=== PATIENT | female | born 1990 | race Caucasian/White ===

== ENCOUNTER 2019-08-06 13:21 | Emergency (ER) | payer MEDICAID ==
[~2019-08-06] VITALS: Ht 157.5 cm; Wt 97.9 kg
[2019-08-06] MEDS ORDERED: LIDOcaine 1% W/epiNEPHrine 1:200,000 10ml vial IJ ONE (13:50)
[2019-08-06] MEDS ORDERED: DOXY100C43 PO (14:28)
[2019-08-06] MEDS ORDERED: LORazepam 1 MG tablet PO ONE (14:30)
[2019-08-06] MEDS ORDERED: HYDROcodone/acetaminophen 5mg/325mg tablet PO ONE (14:30)
--- NOTE | 2019-08-06 14:36 | NUR ---
Pt is being medicated as ordered for pain prior to I&D of abscess.
[2019-08-06 15:06] VITALS: BP 98/52
== END 2019-08-06 15:44 | disposition home or self-care (01) ==
LOC: ER 13:22
DX: L05.01 Pilonidal cyst with abscess (principal); Z88.8 Allergy status to other drugs, medicaments and biological substances; Z79.899 Other long term (current) drug therapy
CPT/HCPCS: 10060; 99283

== ENCOUNTER 2019-12-31 07:02 | Emergency (ER) | payer MEDICAID ==
[~2019-12-31] VITALS: Ht 157.5 cm; Wt 82.0 kg
[2019-12-31 07:03] VITALS: BP 137/90
[2019-12-31] MEDS ORDERED: FAMO-128 PO (09:32)
== END 2019-12-31 09:50 | disposition home or self-care (01) ==
LOC: ER 07:02
DX: R05 Cough (principal); Z20.828 Contact with and (suspected) exposure to other viral communicable diseases; R06.02 Shortness of breath; R09.89 Other specified symptoms and signs involving the circulatory and respiratory systems; F17.200 Nicotine dependence, unspecified, uncomplicated; Z79.899 Other long term (current) drug therapy; Z88.8 Allergy status to other drugs, medicaments and biological substances
CPT/HCPCS: 36415; 87635; 99283